=== PATIENT | female | born 1995 | race Caucasian/White ===

== ENCOUNTER → 2018-03-17 | Outpatient (REF) | LOC: M LAB REF 13:42 | DX: Z00.00 Encounter for general adult medical examination without abnormal findings (principal) ==

== ENCOUNTER → 2020-07-27 | Outpatient (CLI) | payer OTHER, SELFPAY | LOC: M LABSMTC 13:55 | PROVIDERS: ATTEND Family Medicine | DX: Z20.828 Contact with and (suspected) exposure to other viral communicable diseases (principal) ==

== ENCOUNTER → 2023-03-20 | Outpatient (CLI) | payer OTHER ==
[2023-03-20 15:16] LABS: BLOOD UREA NITROGEN 10 MG/DL (9-23); CALCIUM LEVEL 9.4 MG/DL (8.5-10.1); CARBON DIOXIDE LEVEL 25 MMOL/L (20-31); CHLORIDE LEVEL 104 MMOL/L (98-107); CREATININE FOR GFR 0.77 MG/DL (0.55-1.30); GLOMERULAR FILTRATION RATE > 60.0 (>60); GLUCOSE, FASTING 82 MG/DL (60-100); SODIUM LEVEL 139 MMOL/L (136-145)
[2023-03-20 15:18] LABS: THYROID STIMULATING HORMONE 4.041 uIU/ML (0.55-4.78)
== END ==
LOC: M LAB 14:12
PROVIDERS: ATTEND Physician Assistant Medical
DX: R60.1 Generalized edema (principal)